=== PATIENT | male | born 1955 | race Caucasian/White ===

== ENCOUNTER 2019-07-05 09:29 | Inpatient (IN) ==
[2019-07-05] MEDS ORDERED: SODIUM CHLORIDE 0.9% 1,000 ML IV STA (09:58)
[2019-07-05] MEDS ORDERED: ONDANSETRON 4 MG/2 ML VIAL IV STA (09:59)
[2019-07-05] MEDS ORDERED: HYDROmorphone 2 MG/1 ML VIAL IV STA (09:59)
[2019-07-05 10:06] LABS: Basophils % 0.8 % (0.0-0.8); Eosinophils # 0.1 10*3/uL (0.0-0.87); Eosinophils % 1.7 % (0.00-10.9); Hematocrit 44.4 VOL% (42.0-52.0); Hemoglobin 14.5 GM/DL (14.0-18.0); Immature Granulocytes % 0.4 %; Immature Granulocytes Absolute 0.02 #; Lymphocytes % 18.7 % (21.2-54.2); Mean Corpuscular HGB Conc 32.7 GM/DL (32-36); Mean Corpuscular Volume 97.8 FL (87-102); Mean Platelet Volume 9.5 FL (9.6-12.0); Monocytes % 9.6 % (1.7-12.7); Neutrophils % 68.8 % (38.7-73.9); Platelet Count 143 T/CUMM (130-400); Red Blood Count 4.54 MC/CUMM (3.8-5.5); Red Cell Distribution Width 12.3 % (9.3-17.3); White Blood Count 5.2 T/CUMM (4-12)
[2019-07-05 10:16] LABS: PT Patient Result 10.6 SECS (9.6-12.2); Partial Thromboplastin Time 28.4 SECS (20.8-36.0)
[2019-07-05 10:20] LABS: Albumin 3.3 G/DL (3.4-5.0); Bilirubin,Total 0.6 MG/DL (0.2-1.0); Calcium 8.2 MG/DL (8.5-10.1); Osmolality,Calculated 276.7 MOS/KG (273-304); Total Protein 6.3 G/DL (6.4-8.3)
[2019-07-05 10:59] LABS: Apearance,Urine CLEAR (Clear); Bilirubin,Urine Negative (Negative); Blood, Urine Small mg/dL (Negative); Glucose,Urine (UA) Negative (Negative); Ketones,Urine 5 mg/dL (Negative); Mucus,Urine Occasional /LPF (Occasional); Nitrite,Urine Negative (Negative); Protein,Urine Negative; RBC,Urine 3 /HPF (0-4); Sperm,Urine Occasional /HPF (Negative); Urine Color Yellow (Yellow); Urine Specific Gravity 1.019 (1.001-1.035); WBC,Urine 1 /HPF (0-6)
[2019-07-05] MEDS ORDERED: HYDROmorphone 2 MG/1 ML VIAL IV ONE (12:33)
[2019-07-05] MEDS ORDERED: FAMOTIDINE 20 MG/2 ML VIAL IV ONE ×2 (12:41→12:45)
[2019-07-05] MEDS ORDERED: CITRIC ACID/SODIUM CITRATE 30 ML UDCUP PO ONE (12:41)
[2019-07-05] MEDS ORDERED: ceFAZolin 1,000 MG VIAL ONE (12:50)
[2019-07-05] MEDS ORDERED: LIDOCAINE 2% 5 ML VIAL ONE (15:39)
[2019-07-05] MEDS ORDERED: ROCURONIUM 100 MG/10 ML VIAL IV ONE (15:39)
[2019-07-05] MEDS ORDERED: NEOSTIGMINE 10 MG/10 ML VIAL ONE (15:39)
[2019-07-05] MEDS ORDERED: fentaNYL 100 MCG/2 ML VIAL ONE (15:39)
[2019-07-05] MEDS ORDERED: GLYCOPYRROLATE 0.4 MG/2 ML VIAL ONE (15:39)
[2019-07-05] MEDS ORDERED: SUCCINYLCHOLINE 200 MG/10 ML VIAL ONE (15:39)
[2019-07-05] MEDS ORDERED: propofoL 200 MG/20 ML VIAL IV ONE (15:39)
[2019-07-05] MEDS ORDERED: DESFLURANE 1 UNIT/15 MINUTE INH ONE (15:39)
[2019-07-05] MEDS ORDERED: PHENYLEPHRINE 1 MG/10 ML SYRINGE IV ONE (15:39)
[2019-07-05] MEDS ORDERED: LACTATED RINGERS 1,000 ML IV ONE (15:40)
[2019-07-05] MEDS ORDERED: MEPERIDINE 50 MG/1 ML VIAL IM PRN (15:46)
[2019-07-06 12:08] VITALS: BP 115/79
== END 2019-07-06 15:40 | disposition home or self-care (01) | DRG 482 ==
LOC: N.ED 09:29 → N.3E 11:27
PROVIDERS: ADMIT Orthopaedic Surgery; ATTEND Orthopaedic Surgery